=== PATIENT | female | born 1930 | race Caucasian/White ===

== ENCOUNTER 2020-07-22 13:22 | Inpatient (IN) | payer MEDICARE, BC ==
[~2020-07-22] VITALS: Ht 165.1 cm; Wt 77.5 kg
[~2020-07-22 13:22] MED LIST: ATEN25TA PO; CEFD300C37 PO; DICL50TA4 PO; OMEP20CA20 PO; VANC125C3 PO; VERA120C2 PO
--- NOTE | 2020-07-22 13:54 | NUR ---
Pt brought back to room via wheelchair from triage, placed in gown and on bedside monitor. pharmacy technician completed. Awaiting MD exam and orders.
--- NOTE | 2020-07-22 14:45 | NUR ---
Pt awaiting MD exam and orders. Denies c/o at this time. BSC brought into room with hat placed for possible stool sample if able. Call light in reach and family at bedside.
[2020-07-22] MEDS ORDERED: TRAZ-96 PO (15:28)
--- NOTE | 2020-07-22 16:21 | NUR ---
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 ERP states they will head in now.
[2020-07-22 16:57] LABS: BASOPHILS % (AUTO) 1 % (0-1); EOSINOPHILS % (AUTO) 2 % (1-7); LYMPHOCYTES % (AUTO) 9 % (22-44); MEAN CORPUSCULAR HEMOGLOBIN 32.9 pg (27.0-34.8); MEAN CORPUSCULAR HGB CONC 33.7 g/dL (32.4-35.8); MEAN PLATELET VOLUME 7.2 fL (7.4-10.4); MONOCYTES % (AUTO) 12 % (2-9); NEUTROPHILS % (AUTO) 76 % (42-75); PLATELET COUNT 238 x10^3/uL (130-400); RED BLOOD COUNT 3.91 x10^6/uL (3.82-5.3); RED CELL DISTRIBUTION WIDTH 13.5 % (9.6-15.2)
[2020-07-22 16:59] LABS: MD NO
[2020-07-22] MEDS ORDERED: SODIUM CHLORIDE FLUSH 10ML SYR IVF ONE (17:00)
[2020-07-22 17:02] LABS: ALANINE AMINOTRANSFERASE 16 U/L (12-78); ALBUMIN 3.6 g/dL (3.4-5.0); ANION GAP 9 mmol/L (5-15); CALCIUM 9.1 mg/dL (8.5-10.1); CHLORIDE 100 mmol/L (98-107); CREATININE 0.91 mg/dL (0.55-1.02)
[2020-07-22 17:05] LABS: ALKALINE PHOSPHATASE 77 U/L (45-117); BILIRUBIN,TOTAL 0.7 mg/dL (0.2-1.0); TOTAL PROTEIN 7.5 g/dL (6.4-8.2)
--- NOTE | 2020-07-22 17:30 | NUR ---
Pt stool sample sent and new linens provided. BSC emptied and cleaned and returned to bedside for future use by pt.
[2020-07-22 18:22] LABS: CLOSTRIDIUM DIFFICILE ANTIGEN POSITIVE; CLOSTRIDIUM DIFFICILE TOXIN POSITIVE (Negative)
[2020-07-22] MEDS ORDERED: SODIUM CHLORIDE FLUSH 10ML SYR IVF PRN (19:00)
[2020-07-22] MEDS ORDERED: metroNIDAZOLE 500 MG TABLET PO ONE (19:00)
[2020-07-22] MEDS ORDERED: SODIUM CHLORIDE 0.9% 1,000 ML IV ONE (19:00)
--- NOTE | 2020-07-22 19:08 | NUR ---
Report given to ARNOLD Schneider and care transferred. Pt on BSC with small amount of liquid, yellow-brown stool and assisted with pericare and all linens changed with new chucks pad applied. Pt back in bed with call light in reach.
[2020-07-22] MEDS ORDERED: metroNIDAZOLE 500 MG TABLET ONE (19:35)
[2020-07-22 20:47] VITALS: BP 153/62
[2020-07-22] MEDS ORDERED: ENALAPRILAT 1.25 MG/ML, 2ML IVPush PRN (21:00)
[2020-07-22] MEDS ORDERED: ACETAMINOPHEN 325 MG TABLET PO PRN (21:00)
[2020-07-22] MEDS ORDERED: ONDANSETRON ODT 4 MG PO PRN (21:00)
[2020-07-22] MEDS ORDERED: MELATONIN 5 MG TABLET PO PRN (21:00)
[2020-07-22] MEDS ORDERED: LIDODERM 5% PATCH TD PRN (21:00)
[2020-07-22] MEDS ORDERED: TRAZODONE 50MG TABLET PO PRN (21:30)
[2020-07-22] MEDS: VERAPAMIL ER 120MG TABLET.ER PO SCH (21:30)
[2020-07-22] MEDS ORDERED: VERAPAMIL ER 240MG TABLET.ER ONE (22:27)
[2020-07-22 22:32] VITALS: BP 156/71
[2020-07-22] MEDS: ENOXAPARIN 40 MG/0.4 ML SQ SCH (22:34)
[2020-07-23] MEDS: METRONIDAZOLE PMX 500MG/100ML 100 ML IV SCH ×2 (01:34→06:50)
[2020-07-23 03:21] VITALS: BP 126/59
[2020-07-23 06:00] LABS: BASOPHILS % (AUTO) 1 % (0-1); EOSINOPHILS % (AUTO) 4 % (1-7); LYMPHOCYTES % (AUTO) 9 % (22-44); MEAN CORPUSCULAR HEMOGLOBIN 33.3 pg (27.0-34.8); MEAN CORPUSCULAR HGB CONC 33.9 g/dL (32.4-35.8); MEAN PLATELET VOLUME 7.7 fL (7.4-10.4); MONOCYTES % (AUTO) 12 % (2-9); NEUTROPHILS % (AUTO) 76 % (42-75); PLATELET COUNT 219 x10^3/uL (130-400); RED BLOOD COUNT 3.52 x10^6/uL (3.82-5.3); RED CELL DISTRIBUTION WIDTH 13.1 % (9.6-15.2)
[2020-07-23 06:02] LABS: MD NO
[2020-07-23 06:13] LABS: ANION GAP 11 mmol/L (5-15); CALCIUM 8.5 mg/dL (8.5-10.1); CHLORIDE 105 mmol/L (98-107)
[2020-07-23 06:15] LABS: CREATININE 0.62 mg/dL (0.55-1.02)
[2020-07-23 07:20] VITALS: BP 147/51
[2020-07-23] MEDS ORDERED: POTASSIUM CHLORIDE 20 MEQ TAB.ER.PRT PO ONE (08:00)
[2020-07-23] MEDS: DICLOFENAC 50 MG TABLET.DR PO SCH (08:36)
[2020-07-23] MEDS: VANCOMYCIN 50 MG/ML ORAL SUSP PO SCH ×3 (08:36→21:03)
[2020-07-23] MEDS: OMEPRAZOLE 20 MG CAPSULE.DR PO SCH (08:36)
[2020-07-23] MEDS: VERAPAMIL ER 120MG TABLET.ER PO SCH ×2 (08:37→21:03)
[2020-07-23] MEDS: ATENOLOL 25 MG TABLET PO SCH (08:37)
[2020-07-23] MEDS: LACTOBACILLUS 1GM/ PACKET PO SCH ×3 (11:58→21:00)
[2020-07-23 12:27] VITALS: BP 124/67
[2020-07-23 18:55] VITALS: BP 134/59
[2020-07-23] MEDS: ENOXAPARIN 40 MG/0.4 ML SQ SCH (21:00)
[2020-07-24 00:19] VITALS: BP 138/56
[2020-07-24] MEDS: VANCOMYCIN 50 MG/ML ORAL SUSP PO SCH ×3 (02:43→15:08)
[2020-07-24 05:09] LABS: BASOPHILS % (AUTO) 1 % (0-1); EOSINOPHILS % (AUTO) 5 % (1-7); LYMPHOCYTES % (AUTO) 11 % (22-44); MEAN CORPUSCULAR HEMOGLOBIN 33.2 pg (27.0-34.8); MEAN CORPUSCULAR HGB CONC 34.1 g/dL (32.4-35.8); MEAN PLATELET VOLUME 7.1 fL (7.4-10.4); MONOCYTES % (AUTO) 11 % (2-9); NEUTROPHILS % (AUTO) 71 % (42-75); PLATELET COUNT 206 x10^3/uL (130-400); RED BLOOD COUNT 3.49 x10^6/uL (3.82-5.3); RED CELL DISTRIBUTION WIDTH 13.3 % (9.6-15.2)
[2020-07-24 05:13] LABS: MD NO
[2020-07-24 05:23] LABS: ANION GAP 6 mmol/L (5-15); CALCIUM 8.6 mg/dL (8.5-10.1); CHLORIDE 109 mmol/L (98-107)
[2020-07-24 05:25] LABS: CREATININE 0.75 mg/dL (0.55-1.02)
[2020-07-24 07:28] VITALS: BP 150/64
[2020-07-24] MEDS ORDERED: POTASSIUM CHLORIDE 20 MEQ PACKET PO ONE (07:30)
[2020-07-24] MEDS: OMEPRAZOLE 20 MG CAPSULE.DR PO SCH (08:32)
[2020-07-24] MEDS: ATENOLOL 25 MG TABLET PO SCH (08:32)
[2020-07-24] MEDS: VERAPAMIL ER 120MG TABLET.ER PO SCH (08:32)
[2020-07-24] MEDS: DICLOFENAC 50 MG TABLET.DR PO SCH (08:32)
[2020-07-24] MEDS: LACTOBACILLUS 1GM/ PACKET PO SCH ×4 (08:32→16:51)
[2020-07-24 14:14] VITALS: BP 128/73
[2020-07-24] MEDS ORDERED: ACID1GRA3 PO (16:52)
[2020-07-24] MEDS ORDERED: VANC125C11 PO (16:52)
== END 2020-07-24 17:55 | disposition home or self-care (01) | DRG 372 ==
LOC: ED 18:53 → EDIP 18:59 → ED 19:33 → 3N 20:44
PROVIDERS: ADMIT Family Medicine; ATTEND Family Medicine
DX: A04.71 Enterocolitis due to Clostridium difficile, recurrent (principal); E87.1 Hypo-osmolality and hyponatremia; Z20.822 Contact with and (suspected) exposure to COVID-19; E86.0 Dehydration; E87.6 Hypokalemia; G47.00 Insomnia, unspecified; I10 Essential (primary) hypertension; I44.7 Left bundle-branch block, unspecified; K21.9 Gastro-esophageal reflux disease without esophagitis; Z85.3 Personal history of malignant neoplasm of breast; Z90.710 Acquired absence of both cervix and uterus; Z79.899 Other long term (current) drug therapy; Z79.891 Long term (current) use of opiate analgesic; Z79.01 Long term (current) use of anticoagulants; Z87.440 Personal history of urinary (tract) infections; Z90.722 Acquired absence of ovaries, bilateral; Z88.2 Allergy status to sulfonamides; D72.829 Elevated white blood cell count, unspecified
CPT/HCPCS: 36415; 80048; 80053; 83735; 84100; 85025; 87324; 87635; 89055; 93005; 99285; G0378; J1650; J3370; J7030